=== PATIENT | male | born 1980 | race Hispanic/Latino ===

== ENCOUNTER → 2021-02-26 16:57 | Outpatient (CLI) | payer OTHER, MEDICAID, SELFPAY ==
[2021-02-26] MEDS: COVID-19 VACC, Ad26(JANSSEN)/PF 0.5 ML IM (17:06)
== END ==
PROVIDERS: Visit Provider Internal Medicine
DX: Z23 Encounter for immunization (principal)
CPT/HCPCS: 0031A; 91303

== ENCOUNTER 2025-01-15 07:29 | Emergency (ER) | payer OTHER, SELFPAY ==
[2025-01-15] VITALS (9 sets, daily range): BP systolic 134–192; BP diastolic 83–101; PULSE 73–90; RESP 17–23; TEMP 37; O2SAT 93–95
--- NOTE | 2025-01-15 08:25 | DI.RAD.S_ITS ---
PROCEDURE: XR CHEST 2V INDICATIONS: fever, chest pain, sob TECHNIQUE: 2 views of the chest were acquired. COMPARISON: None. FINDINGS: Surgical changes and devices: None. Lungs and pleura: Lungs are clear. No pleural effusions or pneumothorax. Mediastinum: Mediastinal contours are normal. Heart size is normal. Bones and chest wall: No suspicious bony abnormalities. Soft tissues appear unremarkable. IMPRESSION: No acute pulmonary process. Dictated by: Shwetha Moore M.D. on 01/15/2025 at 9:38 Approved by: Shwetha Moore M.D. on 01/15/2025 at 9:38
--- NOTE | 2025-01-15 08:27 | ED_ITS ---
HPI - Chest Pain General Chief Complaint: Upper Respiratory Symptoms Stated Complaint: Middle back pain , having a hard time breathing Time Seen by Provider: 01/15/25 08:15 Source: patient, family, RN notes reviewed and old records reviewed Mode of arrival: Family Vehicle Limitations: no limitations History of Present Illness HPI narrative: 44-year-old male history of chronic alcohol use who presents with complaint of longstanding chest pain on both sides but also notes fevers and shortness of breath cold and cough symptoms. Patient states multiple family members in the house are currently sick. He states his chest pain has been increased states nothing really seems to make it better, states movement does sometimes make it worse. Patient states he has had cough nonproductive. He has not had a lot of nasal congestion. Denies any vomiting has had some nausea. Denies any diarrhea or constipation. No abdominal, low back or flank pain that is new. Patient states no new swelling in extremities. Has a history of psoriasis and has chronic rash. Patient states he took a diclofenac yesterday for discomfort. Patient states no daily prescription medications. Had a prior cyst removed from his pancreas remotely. Denies any drug allergies. Denies regular tobacco, states he drinks 7 8 alcoholic drinks daily, uses marijuana denies other recreational drugs. He was accompanied by his . Does have primary care who he has seen for his chest discomfort in the past. Related Data Allergies Allergy/AdvReac Type Severity Reaction Status Date / Time No Known Drug Allergies Allergy Verified 01/15/25 07:52 Review of Systems Review of Systems ROS Unobtainable: All systems reviewed & are unremarkable except as noted in HPI and below Patient History Social History Smoking Status: Former smoker Smoking Status: Former smoker tobacco type: cigarettes Alcohol type: beer and hard liquor Exam Narrative Exam Narrative: GENERAL: Alert and oriented x three, male in mild distress HEENT: Head normocephalic, atraumatic, EOMI, pupils reactive, face symmetric, moist mucous membranes NECK: Supple, full range of motion CARDIOVASCULAR: Regular rate and rhythm without murmurs, rubs or gallops. No JVD. No edema bilateral lower extremities. RESPIRATORY: Breath sounds equal bilaterally, no wheezes rales or rhonchi. ABDOMEN: Soft, nontender. Normoactive bowel sounds all 4 quadrants. No guarding or rebound, rigidity, no mass : No CVA tenderness BACK: No cervical, thoracic or lumbar vertebral point tenderness. Patient has normal range of motion. Patient's gait is normal. Has a normal movement and sensation of upper and lower extremities. EXTREMITIES: Normal range of motion, no clubbing or edema. Neurovascularly intact NEUROLOGICAL: Cranial nerves II through XII grossly intact. Moving all extremities SKIN: Warm, dry, no petechiae, patient has past she erythematous rash with slightly similarly plaques in the center throughout his torso and extremities. Also has some circular bruising consistent with his reported history of cupping. Initial Vital Signs Initial Vital Signs: Vital Signs Pulse Rate 90 01/15/25 07:39 Pulse Oximetry 93 01/15/25 07:39 Course Orders Ordered: Discontinued Medications Ketorolac Tromethamine (Ketorolac 30 Mg/Ml Vial) 15 mg IV NOW ONE Stop: 01/15/25 08:28 Last Admin: 01/15/25 08:59 Dose: 15 mg Documented By: KLEVER Vital Signs Vital signs: Vital Signs - 8 hr 01/15/25 07:39 01/15/25 07:48 01/15/25 08:00 Temperature 98.6 F Pulse Rate 90 89 Respiratory Rate 17 Blood Pressure 164/101 H 192/93 H Pulse Oximetry 93 94 Oxygen Delivery Method Room Air 01/15/25 08:00 01/15/25 08:39 01/15/25 08:39 Temperature Pulse Rate 83 80 Respiratory Rate Blood Pressure 150/95 H Pulse Oximetry 93 Oxygen Delivery Method 01/15/25 09:00 01/15/25 09:00 01/15/25 09:30 Temperature Pulse Rate 80 80 Respiratory Rate 22 Blood Pressure 161/93 H Pulse Oximetry 94 95 Oxygen Delivery Method 01/15/25 09:31 01/15/25 09:31 01/15/25 10:00 Temperature Pulse Rate 79 73 Respiratory Rate 23 23 Blood Pressure 134/83 Pulse Oximetry 95 95 Oxygen Delivery Method 01/15/25 10:01 01/15/25 10:01 Temperature Pulse Rate 76 Respiratory Rate Blood Pressure 138/91 H Pulse Oximetry 94 Oxygen Delivery Method MDM - Chest Pain Lab Data 01/15/25 08:45 01/15/25 08:45 Labs: Lab Results 01/15/25 Range/Units 08:45 WBC 7.6 (4.5-11.0) X10^3/uL RBC 5.24 (4.5-5.9) X10^6/uL Hgb 16.8 (13.5-17.5) g/dL Hct 47.9 (41-53) % MCV 91.3 (80-100) fL MCH 32.0 (26-34) PG MCHC 35.1 (30-36) % RDW 13.0 (11.6-14.8) % Plt Count 186 (150-400) X10^3/uL Neut % (Auto) 68.5 (50-75) % Lymph % (Auto) 15.5 L (25-40) % [place] % (Auto) 15.3 H (3-14) % Eos % (Auto) 0.1 L (2-4) % Baso % (Auto) 0.6 (0-2) % Neut # (Auto) 5200 (1987-9056) /uL Lymph # (Auto) 1200 (5739-8747) /uL [place] # (Auto) 1200 H (0-900) /uL Eos # (Auto) 0 (0-450) /uL Baso # (Auto) 0 (0-100) /uL Sodium 135 L (137-145) mmol/L Potassium 4.0 (3.4-5.1) mmol/L Chloride 101 (98-107) mmol/L Carbon Dioxide 24 (22-32) mmol/L BUN 15 (9-20) mg/dL Creatinine 0.93 (0.66-1.25) mg/dL Estimated GFR > 60 (>60) mL/min BUN/Creatinine Ratio 16.1 (6-22) Glucose 115 H (70-100) mg/dL Calcium 8.8 (8.4-10.2) mg/dL Total Bilirubin 0.8 (0.2-1.3) mg/dL AST 44 (17-59) IU/L ALT 61 H (<50) IU/L Alkaline Phosphatase 78 (38-126) U/L Total Creatine Kinase 208 H (55-170) U/L Troponin I < 0.012 (0.01-0.034) ng/mL Total Protein 8.5 H (6.3-8.2) g/dL Albumin 4.7 (3.5-5.0) g/dL Globulin 3.8 (1.7-4.1) g/dL Albumin/Globulin Ratio 1.2 (1.0-2.8) Lipase 59 (23-300) U/L SARS-CoV-2 (PCR) Negative (Negative) Influenza A (RT-PCR) Flu a positive H (NEGATIVE) Influenza B (RT-PCR) Flu b negative (NEGATIVE) RSV (PCR) Negative (Negative) ECG Data Attestation: I personally reviewed and interpreted this ECG as follows: Prior ECG tracings: not available for review Interpretation: Sinus rhythm rate 83 GA 136 QRS of 90 QTC of [address] elevation or depression appreciated. No priors available. MDM Narrative Medical decision making narrative: 44-year-old male complaints of fevers chest pain and shortness of breath, patient pain was exacerbated by sitting up. He does drink quite a bit alcohol and after discussion COVID/influenza/RSV and chest x-ray was obtained to evaluate for pneumonia lungs are clear on exam but patient is felt appropriate to obtain labs. Labs show white count of 7.6 hemoglobin of 16 platelets of 186 predominance of monocytes CBC. Sodium is 135 glucose is 115 electrolytes are otherwise appropriate with normal creatinine ALT 61 but bilirubin AST and lipase are normal, troponins less than 0.012 with a CK of 208. EKG shows sinus rhythm rate [address] changes appreciated Chest x-ray shows no acute change COVID/influenza/RSV patient was positive for influenza A. Spoke with patient he was much more comfortable currently reviewed his findings from today. He has had some longstanding chest back pain after discussion might benefit from falling over the PMR he does not have any red flag symptoms. Reviewed all his findings he feels much more comfortable with the plan he was outside the window for Tamiflu which we discussed. Questions answered. Discharge Plan Departure Patient Disposition: Home Clinical Impression: Influenza A Instructions: DI for Influenza -- Adult Activity Restrictions/Additional Instructions: You have tested positive for influenza A, this is a viral illness that typically last 7-10 days. For your chronic back pain and discomfort contact for PMR is included below they can help follow up to see if they can be helpful for your long-term symptoms. Treatment is typically symptomatic including acetaminophen and/or ibuprofen or similar medications for fevers and myalgias. Please return if you have rapidly worsening symptoms, new or worsening chest pain or shortness of breath, persistent vomiting, passing out, new swelling of your extremities or other new or concerning changes. Referrals: Robe Guerra DO [Physician] - Stand Alone Forms: Patient Portal/API/Survey
[2025-01-15 08:53] LABS: Add Manual Diff / Slide Review NO; Basophils Absolute Auto 0 /uL (0-100); Basophils Percent Auto 0.6 % (0-2); Eosinophils Absolute Auto 0 /uL (0-450); Eosinophils Percent Auto 0.1 % (2-4); Hematocrit 47.9 % (41-53); Hemoglobin 16.8 g/dL (13.5-17.5); Lymphocytes Absolute Auto 1200 /uL (1100-4500); Lymphocytes Percent Auto 15.5 % (25-40); Mean Corpuscular HGB Conc 35.1 % (30-36); Mean Corpuscular Volume 91.3 fL (80-100); Monocytes Absolute Auto 1200 /uL (0-900); Monocytes Percent Auto 15.3 % (3-14); Neutrophils Absolute Auto 5200 /uL (1500-7000); Neutrophils Percent Auto 68.5 % (50-75); Platelet Count 186 X10^3/uL (150-400); Red Blood Cell Count 5.24 X10^6/uL (4.5-5.9); White Blood Cell Count 7.6 X10^3/uL (4.5-11.0)
--- NOTE | 2025-01-15 08:58 | EKG_ITS ---
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
[2025-01-15] MEDS: KETOROLAC 30 MG/ML VIAL 15 MG IV (08:59)
[2025-01-15 09:05] LABS: Alanine Aminotransferase 61 IU/L (<50); Albumin 4.7 g/dL (3.5-5.0); Albumin Globulin Ratio 1.2 (1.0-2.8); Alkaline Phosphatase 78 U/L (38-126); Aspartate Aminotransferase 44 IU/L (17-59); BUN Creatinine Ratio 16.1 (6-22); Bilirubin Total 0.8 mg/dL (0.2-1.3); Blood Urea Nitrogen 15 mg/dL (9-20); Calcium 8.8 mg/dL (8.4-10.2); Carbon Dioxide 24 mmol/L (22-32); Chloride 101 mmol/L (98-107); Creatine Kinase 208 U/L (55-170); Estimated Glomerular Filt Rate > 60 mL/min (>60); Globulin 3.8 g/dL (1.7-4.1); Glucose 115 mg/dL (70-100); HEMOLYSIS 17 (0-50); Lipase 59 U/L (23-300); Sodium 135 mmol/L (137-145); Total Protein 8.5 g/dL (6.3-8.2)
[2025-01-15 09:17] LABS: Troponin I < 0.012 ng/mL (0.01-0.034)
[2025-01-15 09:54] LABS: Influenza A - CEPHEID Flu A POSITIVE (NEGATIVE); Influenza B - CEPHEID Flu B NEGATIVE (NEGATIVE); Respiratory Syncytial Virus Negative (Negative)
[2025-01-15 09:57] LABS: COVID-19 CEPHEID 4-PLEX PCR Negative (Negative)
== END 2025-01-15 10:30 | disposition home or self-care (01) ==
PROVIDERS: Emergency Provider Emergency Medicine
DX: J10.1 Influenza due to other identified influenza virus with other respiratory manifestations (principal); R50.9 Fever, unspecified; R06.02 Shortness of breath; Z87.891 Personal history of nicotine dependence; F10.90 Alcohol use, unspecified, uncomplicated
CPT/HCPCS: 0241U; 36415; 71046; 80053; 82550; 83690; 84484; 85025; 93005; 96374; 99284; J1885